=== PATIENT | male | born 1995 | race American Indian/Alaskan Native ===

== ENCOUNTER 2016-10-13 20:31 | Emergency (ER) | payer SELFPAY ==
[2016-10-13] MEDS ORDERED: BOOSTRIX IM ONE (22:38)
--- NOTE | 2016-10-13 22:57 | Emergency Department Report ---
ED Lower Extremity HPI - General Chief Complaint: Extremity Injury, Lower Stated Complaint: LEFT FOOT GIL NAIL INJURY Time Seen by Provider: 10/13/16 22:31 Source: patient Mode of arrival: Ambulatory Limitations: No Limitations - History of Present Illness Initial Comments: Patient comes into the ER today with complaints of left foot pain after stepping on a nail earlier today. Patient states that he was wearing tennis shoes and stepped on a board that apparently had a nail sticking up. Patient remove the board through his shoe. Patient is unsure as to when his last tetanus shot was. Patient denies any loss of sensation or any other complaints. MD Complaint: foot injury - Related Data Previous Rx's Medication Instructions Recorded Last Taken Type Cetirizine HCl [ZyrTEC] 10 mg PO QDAY #14 capsule 06/26/16 Unknown Rx Fluticasone [Flonase] 1 spray NS QDAY #1 bottle 06/26/16 Unknown Rx predniSONE [Deltasone] 50 mg PO QDAY #5 tab 06/26/16 Unknown Rx Ciprofloxacin HCl [Ciprofloxacin 500 mg PO BID #20 tablet 10/13/16 Unknown Rx TAB] traMADol [Ultram 50 MG tab] 50 mg PO Q6HR PRN #18 tablet 10/13/16 Unknown Rx Allergies Allergy/AdvReac Type Severity Reaction Status Date / Time No Known Allergies Allergy Verified 06/26/16 14:28 ED Review of Systems ROS: Stated complaint: LEFT FOOT GIL NAIL INJURY Other details as noted in HPI Constitutional: denies: chills, fever Eyes: denies: eye pain, eye discharge, vision change ENT: denies: ear pain, throat pain Respiratory: denies: cough, shortness of breath, wheezing Cardiovascular: denies: chest pain, palpitations Endocrine: no symptoms reported Gastrointestinal: denies: abdominal pain, nausea, diarrhea Genitourinary: denies: urgency, dysuria Musculoskeletal: other (left foot pain). denies: back pain, joint swelling, arthralgia Skin: denies: rash, lesions Neurological: denies: headache, weakness, paresthesias Psychiatric: denies: anxiety, depression Hematological/Lymphatic: denies: easy bleeding, easy bruising ED Past Medical Hx - Past Medical History Previous Medical History?: No - Surgical History Past Surgical History?: No - Social History Smoking Status: Never Smoker Substance Use Type: None - Medications Home Medications: Home Medications Medication Instructions Recorded Confirmed Last Taken Type Cetirizine HCl [ZyrTEC] 10 mg PO QDAY #14 capsule 06/26/16 Unknown Rx Fluticasone [Flonase] 1 spray NS QDAY #1 bottle 06/26/16 Unknown Rx predniSONE [Deltasone] 50 mg PO QDAY #5 tab 06/26/16 Unknown Rx Ciprofloxacin HCl [Ciprofloxacin 500 mg PO BID #20 tablet 10/13/16 Unknown Rx TAB] traMADol [Ultram 50 MG tab] 50 mg PO Q6HR PRN #18 tablet 10/13/16 Unknown Rx ED Physical Exam - General Limitations: No Limitations General appearance: alert, in no apparent distress - Head Head exam: Present: atraumatic, normocephalic - Eye Eye exam: Present: normal appearance - ENT ENT exam: Present: mucous membranes moist - Neck Neck exam: Present: normal inspection - Respiratory Respiratory exam: Present: normal lung sounds bilaterally. Absent: respiratory distress - Cardiovascular Cardiovascular Exam: Present: regular rate, normal rhythm. Absent: systolic murmur, diastolic murmur, rubs, gallop - GI/Abdominal GI/Abdominal exam: Present: soft, normal bowel sounds - Rectal Rectal exam: Present: deferred - Extremities Exam Extremities exam: Present: full ROM, tenderness (left midline plantar tenderness with small puncture wound. No active bleeding noted on examination.) , normal capillary refill. Absent: pedal edema, joint swelling, calf tenderness - Back Exam Back exam: Present: normal inspection - Neurological Exam Neurological exam: Present: alert, oriented X3. Absent: motor sensory deficit - Psychiatric Psychiatric exam: Present: normal affect, normal mood - Skin Skin exam: Present: warm, dry, intact, normal color. Absent: rash ED Course Vital Signs 10/13/16 20:53 Temperature 97.9 F Pulse Rate 85 Respiratory 18 Rate Blood Pressure 138/57 O2 Sat by Pulse 100 Oximetry ED Lower Extremity MDM - Medical Decision Making If Plantar Puncture Wound, Discussed with Patient: Risk of Infection, Risk of Foreign Body in W, If X-Rays would be helpfu Patient is nontoxic hemodynamically stable. Patient was given update to his tetanus immunization here in the ER. Patient's foot was soaked in diluted Betadine for 10-15 minutes and bandaged with a nonadherent dressing. I will start patient on antibiotics prophylactically for infection as well as prescribe low-dose pain medications for symptomatically relief. I have instructed patient on proper care of his wound. Patient is in agreement with treatment plan patient is stable for discharge. Critical care attestation.: If time is entered above; I have spent that time in minutes in the direct care of this critically ill patient, excluding procedure time. ED Disposition Clinical Impression: Puncture wound of plantar aspect of left foot Disposition: - TO HOME OR SELFCARE Is pt being admited?: No Does the pt Need Aspirin: No Condition: Good Instructions: Puncture Wound (ED) Prescriptions: Ciprofloxacin HCl [Ciprofloxacin TAB] 500 mg PO BID #20 tablet traMADol [Ultram 50 MG tab] 50 mg PO Q6HR PRN #18 tablet PRN Reason: Pain Referrals: PRIMARY CARE, [Primary Care Provider] - 3-5 Days Time of Disposition: 22:59
[2016-10-13 23:13] VITALS: BP 131/67
== END 2016-10-13 23:14 | disposition home or self-care (01) ==
LOC: ED 20:31
DX: S91.332A Puncture wound without foreign body, left foot, initial encounter (principal); W22.8XXA Striking against or struck by other objects, initial encounter; Y93.89 Activity, other specified; Y99.8 Other external cause status; Y92.89 Other specified places as the place of occurrence of the external cause
CPT/HCPCS: 90471; 90715